=== PATIENT | male | born 1980 ===

== ENCOUNTER 2021-12-17 17:15 | Emergency (ER) | payer SELFPAY ==
[2021-12-17 18:50] VITALS: BP 122/100
[2021-12-17 19:42] LABS: Basophils % (Auto) 0.8 % (0.0-1.8); Eosinophils % (Auto) 0.6 % (0.0-4.3); Hematocrit 42.9 % (35.5-45.6); Hemoglobin 15.1 gm/dl (11.8-15.2); Lymphocytes # (Auto) 1.7 K/mm3 (1.2-5.4); Lymphocytes % (Auto) 27.9 % (13.4-35.0); Mean Corpuscular HGB Conc 35 % (32-34); Mean Corpuscular Volume 86 fl (84-94); Monocytes # (Auto) 0.3 K/mm3 (0.0-0.8); Monocytes % (Auto) 4.6 % (0.0-7.3); Platelet Count 259 K/mm3 (140-440); Red Blood Count 4.98 M/mm3 (3.65-5.03); Red Cell Distribution Width 13.9 % (13.2-15.2)
[2021-12-17 19:43] LABS: Blood Urea Nitrogen 12 mg/dL (9-20); Calcium 9.6 mg/dL (8.4-10.2); Hemolysis Index 44
[2021-12-17 19:46] LABS: BUN/Creatinine Ratio 20
== END 2021-12-18 02:08 | disposition left against medical advice (07) ==
LOC: ED 17:15
DX: R73.9 Hyperglycemia, unspecified (principal); Z53.21 Procedure and treatment not carried out due to patient leaving prior to being seen by health care provider
CPT/HCPCS: 36415; 80048; 82805; 82962; 85025

== ENCOUNTER 2021-12-18 08:30 | Emergency (ER) | payer SELFPAY ==
[2021-12-18 09:50] VITALS: BP 138/86
[2021-12-18 11:28] LABS: Basophils % (Auto) 0.5 % (0.0-1.8); Eosinophils # (Auto) 0.1 K/mm3 (0.0-0.4); Eosinophils % (Auto) 0.8 % (0.0-4.3); Hematocrit 42.4 % (35.5-45.6); Hemoglobin 14.6 gm/dl (11.8-15.2); Lymphocytes # (Auto) 1.4 K/mm3 (1.2-5.4); Lymphocytes % (Auto) 19.5 % (13.4-35.0); Mean Corpuscular HGB Conc 34 % (32-34); Mean Corpuscular Volume 87 fl (84-94); Monocytes # (Auto) 0.2 K/mm3 (0.0-0.8); Monocytes % (Auto) 3.1 % (0.0-7.3); Platelet Count 258 K/mm3 (140-440); Red Blood Count 4.86 M/mm3 (3.65-5.03); Red Cell Distribution Width 14.2 % (13.2-15.2)
[2021-12-18 12:28] LABS: Albumin 4.7 g/dL (3.9-5); Blood Urea Nitrogen 13 mg/dL (9-20); Calcium 9.4 mg/dL (8.4-10.2); Hemolysis Index 56
[2021-12-18 12:29] LABS: BUN/Creatinine Ratio 26
[2021-12-18 12:41] LABS: Alanine Aminotransferase < 5 units/L (7-56)
== END 2021-12-18 16:10 | disposition left against medical advice (07) ==
LOC: ED 08:30
DX: R73.9 Hyperglycemia, unspecified (principal); G47.00 Insomnia, unspecified; Z53.21 Procedure and treatment not carried out due to patient leaving prior to being seen by health care provider
CPT/HCPCS: 36415; 80053; 85025